=== PATIENT | male | born 1965 | race Caucasian/White ===

== ENCOUNTER 2021-10-05 00:08 | Emergency (ER) | payer OTHER ==
[~2021-10-05] VITALS: Ht 175.3 cm; Wt 68.0 kg
[2021-10-05] MEDS ORDERED: IV NORMAL SALINE 1000 ML BAG IV ONE (00:30)
[2021-10-05 00:37] LABS: *BILIRUBIN,URIN NEGATIVE (NEGATIVE); *BLOOD, URINE NEGATIVE (NEGATIVE); *CLARITY,URINE CLEAR (CLEAR); *KETONES,URINE NEGATIVE (NEGATIVE); *UROBILINOGEN,URINE 0.2 E.U./dl (NORMAL); LEUKOCYTE ESTERASE ,URINE NEGATIVE (NEGATIVE); NITRITE, URINE NEGATIVE (NEGATIVE); UGLUCOSE NEGATIVE (NEGATIVE)
--- NOTE | 2021-10-05 00:40 | NUR ---
pt a/o denies pain, placed in a gown, labs drawn. pt is compliant will not state what he drank.
[2021-10-05 00:42] LABS: *COLOR,URINE STRAW (YELLOW)
[2021-10-05 00:52] LABS: *AMPHETAMINE, URINE NEGATIVE (NEGATIVE); *CANNABINOID, URINE NEGATIVE (NEGATIVE); *COCCAINE, URINE NEGATIVE (NEGATIVE); *OPIATE, URINE NEGATIVE (NEGATIVE); *PHENCYCLIDINE SCREEN,URINE NEGATIVE (NEGATIVE)
[2021-10-05 00:53] LABS: HEMATOCRIT 47.8 % (36.7-47.1); MEAN CORPUSCULAR HEMOGLOBIN 31.1 uug (23.8-33.4); MEAN CORPUSCULAR VOLUME 90.5 fL (73.0-96.2); PLATELET COUNT (AUTO) 330 K/uL (152-348)
[2021-10-05 00:56] LABS: CARBON DIOXIDE 30 mmol/L (21-32); CHLORIDE 109 mmol/L (98-107); CREATININE 1.1 mg/dL (0.6-1.3); GLUCOSE 103 mg/dL (74-106); POTASSIUM 4.1 mmol/L (3.5-5.1); UREA NITROGEN, BLOOD 9 mg/dL (7-18)
[2021-10-05 00:59] LABS: ETHANOL 325 MG/DL (0-0)
[2021-10-05 01:02] LABS: ACETAMINOPHEN < 2.0 ug/mL (10-30); ALANINE AMINOTRANSFERASE 16 U/L (16-63); ALKALINE PHOSPHATASE 56 U/L (50-136); ASPARTATE AMINOTRANSFERASE 14 U/L (15-37); BILIRUBIN,DIRECT 0.1 mg/dL (0.0-0.2); BILIRUBIN,TOTAL 0.3 mg/dL (0.2-1.0); TOTAL PROTEIN, SERUM 6.6 g/dL (6.4-8.2)
--- NOTE | 2021-10-05 03:02 | NUR ---
pt turned positioned changed bed as pt urinated on himself. Placed pt in a diaper and placed pads.
--- NOTE | 2021-10-05 04:25 | NUR ---
pt is restless says he wants to smoke that he wants to go home. States he does not know where he lives that it is off of [address] at a [facility] facility.
--- NOTE | 2021-10-05 05:08 | NUR ---
pt removed iv line, wants to leave the hospital. We are trying to locate the facility that the patient ws from, if facility can pick pt up Dr. Feliz will release the patient.
[2021-10-05] MEDS ORDERED: KETAMINE HCL 500 MG/10 ML INJ IM ONE (05:15)
--- NOTE | 2021-10-05 05:34 | NUR ---
pt currently sleeping, I am attempting to locate facility where pt lives.
--- NOTE | 2021-10-05 08:04 | NUR ---
Patient is sleeping, VSS
--- NOTE | 2021-10-05 09:23 | NUR ---
Patient is awake, alert, oriented x4. States he wants to leave. He is ambulatory with steady gait. He walked to the bathroom. WILLIAN Reynoso got him a tap card and he states he will [facility] as soon as he leaves and he states he knows how to get there with the bus. i gave him new pants since his was soiled
--- NOTE | 2021-10-05 09:37 | NUR ---
DC and follow up instructions given and explained to patient who states he understands all instructions
== END 2021-10-05 09:38 | disposition home or self-care (01) ==
LOC: ER 00:12
DX: F10.129 Alcohol abuse with intoxication, unspecified (principal); Y90.8 Blood alcohol level of 240 mg/100 ml or more; E87.0 Hyperosmolality and hypernatremia; R10.9 Unspecified abdominal pain
CPT/HCPCS: 36415; 70030-TC; 70450; 72125; 85025; 93005; A4663; G0480